=== PATIENT | male | born 1950 | race Caucasian/White ===

== ENCOUNTER 2021-10-26 21:21 | Emergency (ER) | payer OTHER ==
[~2021-10-26] VITALS: Ht 157.5 cm; Wt 56.7 kg
[2021-10-26 21:21] VITALS: BP 123/65
--- NOTE | 2021-10-26 21:26 | NUR ---
PT BROUGHT TO BED 8 VIA [employer]ING
--- NOTE | 2021-10-26 21:37 | NUR ---
NIECE PRIMARY FAMILY MEMBER ABHISHEK FRY [phone] CALLED REQUESTING UPDATE
--- NOTE | 2021-10-26 23:01 | NUR ---
PATIENT PRESENTS TO ED WITH LEFT FOREHEAD ABRASION. PT STATES HE WAS REACHING FOR HIS PHONE AND HE FELL PT HAD SIMILAR EPISODE LAST WEEK. DENIES N/V/D; SKIN IS PINK/WARM/DRY WITH OPEN CUT TO LEFT FOREHEAD. PT DID NOT BLACK OUT; AAOX3 PT DOES NOT KNOW TIME. PT USES WHEELCHAIR ; LUNGS CLEAR BL; HR EVEN AND REGULAR; PT DENIES ANY FEVER, CP, SOB, OR COUGH AT THIS TIME; PATIENT STATES PAIN OF 0/10 AT THIS TIME; VSS; PATIENT POSITIONED FOR COMFORT; HOB ELEVATED; BEDRAILS UP X2; BED DOWN. ER MD MADE AWARE OF PT STATUS. PMH: VISUAL BLINDNESS, HEARING LOSS. RX: LASIX , VENTOLIN, PENICILLIN
--- NOTE | 2021-10-26 23:10 | NUR ---
NIECE AT BEDSIDE. SHE SAID PT IS AT BASELINE.
--- NOTE | 2021-10-27 00:19 | NUR ---
HEATH REQUESTING CALL BACK . HEATH REQUESTING PT TO STAY HERE HE NEEDS HIS WHEELCHAIR.
[2021-10-27] MEDS ORDERED: HYDR-5080 PO (01:04)
[2021-10-27] MEDS ORDERED: HYDROcodone/APAP 5/325 MG 1 TAB TAB PO ONE (01:05)
[2021-10-27 01:09] VITALS: BP 135/74
--- NOTE | 2021-10-27 01:40 | NUR ---
Patient discharged with v/s stable. Written and verbal after care instructions given and explained. Patient alert, oriented and verbalized understanding of instructions. Wheel Chair Assisted with to car. All questions addressed prior to discharge. ID band removed. Patient advised to follow up with PMD. Rx of NORCO 7.5 - 325 given. Opportunity to ask questions provided and answered.
== END 2021-10-27 01:40 | disposition home or self-care (01) ==
LOC: MED 21:21
DX: S00.12XA Contusion of left eyelid and periocular area, initial encounter (principal); S80.212A Abrasion, left knee, initial encounter; W06.XXXA Fall from bed, initial encounter; Y93.89 Activity, other specified; Y92.89 Other specified places as the place of occurrence of the external cause; Y99.8 Other external cause status
CPT/HCPCS: 70450; 73562; 99284; Q0092